=== PATIENT | female | born 1995 | race Caucasian/White ===

== ENCOUNTER 2021-08-21 20:03 | Outpatient (CLI) | payer OTHER ==
[~2021-08-21] VITALS: Ht 175.3 cm; Wt 69.5 kg
[2021-08-21 20:47] VITALS: BP 136/79
[2021-08-21 22:53] VITALS: BP 126/72
[2021-08-21] MEDS ORDERED: PRENTAB9 PO (23:05)
[2021-08-21] MEDS ORDERED: EFFE75CA2 PO (23:05)
== END 2021-08-21 23:52 | disposition home or self-care (01) ==
LOC: M LDO 20:03
PROVIDERS: ATTEND Obstetrics & Gynecology
DX: O47.1 False labor at or after 37 completed weeks of gestation (principal); O24.410 Gestational diabetes mellitus in pregnancy, diet controlled; Z3A.38 38 weeks gestation of pregnancy; O36.5930 Maternal care for other known or suspected poor fetal growth, third trimester, not applicable or unspecified
CPT/HCPCS: 59025; G0378; G0463

== ENCOUNTER 2021-08-25 07:50 | Inpatient (IN) | payer OTHER ==
[2021-08-25] VITALS (21 sets, daily range): BP systolic 114–156; BP diastolic 64–86
[~2021-08-25] VITALS: Ht 175.3 cm; Wt 69.0 kg
[~2021-08-25 07:50] MED LIST: EFFE75CA2 PO; PRENTAB9 PO
[2021-08-25] MEDS ORDERED: METHYLERGONOVINE MALEATE 0.2 MG/ML VIAL (J2210) IM PRN (08:20)
[2021-08-25] MEDS ORDERED: OXYTOCIN INJ 10 UNITS/ML VIAL (J2590) IV PRN (08:20)
[2021-08-25] MEDS ORDERED: OXYTOCIN DRIP 30 UNITS in IV 1 EA IV PRN ×4 (08:20)
[2021-08-25] MEDS ORDERED: LR 1,000 ML IV SCH ×2 (08:20→16:40)
[2021-08-25] MEDS ORDERED: TRANEXAMIC ACID INJection 1,000 MG in NS 100 ML IV PRN (08:20)
[2021-08-25] MEDS ORDERED: HOME MED LIST COMPLETE! XX SCH (08:20)
[2021-08-25] MEDS ORDERED: LACTATED RINGER'S 1000 ML IV ONE (08:20)
[2021-08-25] MEDS ORDERED: OXYTOCIN DRIP 30 UNITS in IV 1 EA IV SCH ×5 (08:25→16:40)
[2021-08-25 09:05] LABS: HEMATOCRIT 34.1 % (36.0-47.0); HEMOGLOBIN 11.2 g/dl (12.0-15.5); MEAN CORPUSCULAR HEMOGLOBIN 27.3 pg (27.0-33.0); MEAN CORPUSCULAR HGB CONC 32.8 g/dl (32.0-36.5); MEAN CORPUSCULAR VOLUME 83.2 fl (80.0-96.0); PLATELET COUNT, AUTOMATED 122 10^3/uL (150-450); WHITE BLOOD COUNT 6.1 10^3/uL (4.0-10.0)
[2021-08-25] MEDS ORDERED: EPIDURAL/PCA KEYS XX PRN (14:10)
[2021-08-25] MEDS ORDERED: diphenhydrAMINE 50MG/ML VIAL (J1200) IV PRN (14:10)
[2021-08-25] MEDS ORDERED: ONDANSETRON 4MG/2ML VIAL IV PRN (14:10)
[2021-08-25] MEDS ORDERED: FENTANYL/ROPIVACAINE/NACL BAG 100 ML EPIDURAL SCH (14:10)
[2021-08-25] MEDS ORDERED: NALOXONE INJ 0.4MG/1ML VIAL (J2310 PER 1MG) IV PRN (14:10)
[2021-08-25] MEDS ORDERED: ePHEDrine SULFATE 25 MG/5 ML(5MG/ML) SYRINGE IVP PRN (14:10)
[2021-08-25] MEDS ORDERED: MOM 30ML SUSPENSION UDC PO PRN (16:40)
[2021-08-25] MEDS ORDERED: IBUPROFEN 600MG TAB PO PRN (16:40)
[2021-08-25] MEDS ORDERED: ACETAMINOPHEN TAB 650MG DOSE (2X325MG) PO PRN (16:40)
[2021-08-25] MEDS ORDERED: DIBUCAINE 1% OINTMENT 30GM TOP PRN (16:40)
[2021-08-25] MEDS ORDERED: ACETAMINOPHEN 500 MG TAB PO PRN (16:40)
[2021-08-25] MEDS ORDERED: RHOGAM 300 MCG (1500 IU) INJ (J2790) IM SCH (16:40)
[2021-08-25] MEDS ORDERED: DOCUSATE SODIUM 100MG CAPSULE PO PRN (16:40)
[2021-08-25] MEDS ORDERED: OXYTOCIN INJ 10 UNITS/ML VIAL (J2590) IV ONE (16:40)
[2021-08-25] MEDS ORDERED: METHYLERGONOVINE MALEATE 0.2 MG TAB PO PRN (16:40)
[2021-08-25] MEDS ORDERED: ANUSOL HC CREAM 30GM TOP PRN (16:40)
[2021-08-25 16:48] LABS: CORD GAS ABE A -7.1; CORD GAS HCO3 A 17.7 MEQ/L; CORD GAS O2 SAT A 75.3 %; CORD GAS O2 SAT V 76.6 %; CORD GAS PCO2 A 34.2 mmHg; CORD GAS PH A 7.333 UNITS; CORD GAS PO2 A 33.2 mmHg; CORD GAS SBC A 18.3 MEQ/L; CORD GAS TCO2 A 18.8 MEQ/L
[2021-08-25 16:50] LABS: CORD GAS HCO3 V 15.7 MEQ/L; CORD GAS PCO2 V 31.2 mmHg; CORD GAS PH V 7.319 UNITS; CORD GAS PO2 V 33.4 mmHg; CORD GAS SBC V 16.9 MEQ/L; CORD GAS TCO2 V 16.6 MEQ/L
[2021-08-25] MEDS: VENLAFAXINE **XR** 75MG CAPSULE PO SCH (21:05)
[2021-08-26 06:00] VITALS: BP 120/74
[2021-08-26 06:44] LABS: HEMATOCRIT 31.2 % (36.0-47.0); HEMOGLOBIN 10.2 g/dl (12.0-15.5); MEAN CORPUSCULAR HEMOGLOBIN 27.8 pg (27.0-33.0); MEAN CORPUSCULAR HGB CONC 32.7 g/dl (32.0-36.5); PLATELET COUNT, AUTOMATED 126 10^3/uL (150-450); RED BLOOD COUNT 3.67 10^6/uL (4.00-5.40); WHITE BLOOD COUNT 10.2 10^3/uL (4.0-10.0)
[2021-08-26] MEDS: PRENATAL VITAMINS CHEWABLE TABLET PO SCH (09:31)
[2021-08-26 18:00] VITALS: BP 124/65
[2021-08-26] MEDS: VENLAFAXINE **XR** 75MG CAPSULE PO SCH (21:01)
[2021-08-27 06:00] VITALS: BP 121/57
[2021-08-27] MEDS: PRENATAL VITAMINS CHEWABLE TABLET PO SCH (08:32)
[2021-08-27] MEDS ORDERED: MEASLES,MUMPS,RUBELLA VACCINE INJ (MMR-II) (90707) SC.IMMUN ONE (09:00)
== END 2021-08-27 11:10 | disposition home or self-care (01) | DRG 807 ==
LOC: M LDO 07:50 → M LDI 08:25 → M OBS 18:46
PROVIDERS: ADMIT Obstetrics & Gynecology; ATTEND Obstetrics & Gynecology
PROC: 10E0XZZ Delivery of Products of Conception, External Approach (ICD-10-PCS; principal; 2021-08-25)
DX: O99.344 Other mental disorders complicating childbirth (principal); Z37.0 Single live birth; Z3A.39 39 weeks gestation of pregnancy; F32.A Depression, unspecified; F41.9 Anxiety disorder, unspecified